=== PATIENT | male | born 1975 | race African-American/Black ===

== ENCOUNTER 2021-04-12 10:17 | Inpatient (IN) | payer OTHER, MEDICAID, SELFPAY ==
[2021-04-12] VITALS (9 sets, daily range): BP systolic 156–180
[~2021-04-12] VITALS: Ht 177.8 cm; Wt 64.9 kg
[2021-04-12] MEDS ORDERED: CEFAZOLIN 1 GM IVPB PREMIX 50 ML IV ONE (11:15)
[2021-04-12] MEDS ORDERED: ONDANSETRON HCL 4 MG/2 ML VIAL IVP ONE (13:14)
[2021-04-12] MEDS ORDERED: BUPIVACAINE /PF 0.25% 30 ML VIAL INJ ONE (13:14)
[2021-04-12] MEDS ORDERED: DEXAMETHASONE SOD PHOSPHATE 4 MG/ML VIAL IVP ONE (13:14)
[2021-04-12] MEDS ORDERED: MIDAZOLAM HCL 5 MG/5 ML VIAL IVP ONE (13:14)
[2021-04-12] MEDS ORDERED: SUGAMMADEX SODIUM 200 MG/2 ML VIAL IV ONE (13:14)
[2021-04-12] MEDS ORDERED: PROPOFOL 200MG/ 20ML VIAL (DIPRIVAN) IV ONE (13:14)
[2021-04-12] MEDS ORDERED: NS IRRIG SOLN 1000 ML IR ONE (13:14)
[2021-04-12] MEDS ORDERED: ROCURONIUM BROMIDE 10 MG/ML (ZEMURON) IV ONE (13:14)
[2021-04-12] MEDS ORDERED: fentaNYL CITRATE 250 MCG/5 ML AMP IV ONE (13:14)
[2021-04-12] MEDS ORDERED: LR 1,000 ML IV.SOLN IV ONE (13:14)
[2021-04-12] MEDS ORDERED: DESFLURANE 15 MIN GAS INH ONE (13:14)
[2021-04-12] MEDS ORDERED: POLYMYXIN 500,000/BACIT.10,000 UNITS in NS IRR 1 L IR ONE (13:29)
[2021-04-12] MEDS ORDERED: HYDROmorphone 1 MG/ML INJ. CARTRIDGE IVP PRN ×2 (14:15)
[2021-04-12] MEDS ORDERED: METOCLOPRAMIDE HCL 10 MG/2 ML VIAL IVP PRN (14:15)
[2021-04-12] MEDS ORDERED: LR 1,000 ML IV SCH (14:15)
[2021-04-12] MEDS ORDERED: MEPERIDINE HCL/PF 25 MG/ML DISP.SYRIN IVP PRN (14:15)
[2021-04-12] MEDS ORDERED: ONDANSETRON HCL 4 MG/2 ML VIAL IVP PRN (14:15)
[2021-04-12] MEDS ORDERED: hydrALAZINE HCL 20 MG/ML VIAL IVP PRN ×2 (14:15→23:45)
[2021-04-12] MEDS ORDERED: MIDAZOLAM HCL 2 MG/2 ML VIAL (VERSED) IVP PRN (14:15)
[2021-04-12] MEDS ORDERED: HYDROcodone/ACETAMIN 5-325 MG TAB (NORCO/ VICODIN) PO PRN (15:00)
[2021-04-12] MEDS ORDERED: D5/0.45 NS 1,000 ML IV SCH (15:00)
[2021-04-12] MEDS ORDERED: hydrALAZINE HCL 20 MG/ML VIAL ONE (17:21)
[2021-04-12] MEDS ORDERED: LABETALOL 100 MG/ 20ML VIAL IVP PRN (18:00)
[2021-04-12] MEDS ORDERED: HYDROcodone/ACETAMIN 5-325 MG TAB (NORCO/ VICODIN) ONE (21:16)
[2021-04-12] MEDS ORDERED: cloNIDine HCL 0.1 MG TABLET PO ONE (22:45)
[2021-04-12] MEDS ORDERED: cloNIDine HCL 0.1 MG TABLET ONE (22:46)
[2021-04-12] MEDS ORDERED: ACETAMINOPHEN 325 MG TABLET PO PRN (23:30)
[2021-04-12] MEDS ORDERED: ALBUTEROL SULFATE 0.083% 2.5 MG/3 ML VIAL.NEB INH PRN (23:30)
[2021-04-12] MEDS ORDERED: HYDROcodone/ACETAMIN 10-325 MG TAB PO PRN (23:30)
[2021-04-12] MEDS: 0.45% NACL 1,000 ML IV SCH (23:30)
[2021-04-12] MEDS ORDERED: cloNIDine HCL 0.1 MG TABLET PO PRN (23:45)
[2021-04-13] VITALS (12 sets, daily range): BP systolic 143–169
[2021-04-13] MEDS ORDERED: CARV6.2554 PO (00:04)
[2021-04-13] MEDS ORDERED: GLUT5POW PO (00:04)
[2021-04-13] MEDS ORDERED: HYDR-3927 PO (00:04)
[2021-04-13] MEDS ORDERED: HYD500 PO (00:04)
[2021-04-13] MEDS ORDERED: HYDR2TAB4 PO (00:04)
[2021-04-13] MEDS ORDERED: FOLI-43 PO (00:04)
[2021-04-13] MEDS ORDERED: VITD2000 PO (00:04)
[2021-04-13] MEDS ORDERED: DEFE360T PO (00:04)
[2021-04-13] MEDS ORDERED: NALOXONE HCL 0.4 MG/ML AMP (NARCAN) IVP PRN (03:15)
[2021-04-13] MEDS ORDERED: HYDROmorphone 2 MG TAB PO PRN (03:15)
[2021-04-13] MEDS: cloNIDine HCL 0.1 MG TABLET PO PRN ×2 (05:23→20:28)
[2021-04-13 06:20] LABS: BASOPHILS % (AUTO) 0.1 % (0.0-2.0); EOSINOPHILS # (AUTO) 0.1 K/uL (0.0-0.4); EOSINOPHILS % (AUTO) 0.8 % (0.0-4.0); HEMATOCRIT 28.3 % (36-54); HEMOGLOBIN 9.3 g/dL (14.0-18.0); LYMPHOCYTES % (AUTO) 17.9 % (20.5-51.5); MEAN CORPUSCULAR HEMOGLOBIN 35 pg (27-31); MEAN CORPUSCULAR HGB CONC 33 % (32-36); MEAN CORPUSCULAR VOLUME 105 fL (79.0-98.0); MONOCYTES % (AUTO) 9.5 % (1.7-9.3); NEUTROPHILS # (AUTO) 7.9 K/uL (1.8-7.7); NEUTROPHILS % (AUTO) 71.7 % (40.0-70.0); PLATELET COUNT (AUTO) 160 K/uL (130-430); RED BLOOD CELL COUNT(AUTO) 2.69 MIL/uL (4.2-6.2); RED CELL DISTRIBUTION WIDTH 24.9 % (9.0-15.0)
[2021-04-13 06:38] LABS: CALCIUM 8.8 mg/dL (8.4-11.0); CREATININE 3.47 mg/dL (0.55-1.30); POTASSIUM 4.4 mmol/L (3.5-5.1); TOTAL BILIRUBIN 1.2 mg/dL (0.0-1.0)
[2021-04-13] MEDS: HYDROXYUREA 500 MG CAPSULE (HYDREA) PO SCH (08:46)
[2021-04-13] MEDS: CARVEDILOL 6.25 MG TABLET (COREG) PO SCH ×2 (08:48→20:27)
[2021-04-13] MEDS: FOLIC ACID 1 MG TABLET PO SCH (08:48)
[2021-04-13] MEDS: HYDROcodone/ACETAMIN 5-325 MG TAB (NORCO/ VICODIN) PO PRN ×4 (08:52→23:00)
[2021-04-13] MEDS ORDERED: CARVEDILOL 6.25 MG TABLET (COREG) PO SCH (09:00)
[2021-04-13] MEDS ORDERED: HYDROXYUREA 500 MG CAPSULE (HYDREA) PO SCH (09:00)
[2021-04-13] MEDS ORDERED: FOLIC ACID 1 MG TABLET PO SCH (09:00)
[2021-04-13] MEDS: 0.45% NACL 1,000 ML IV SCH ×2 (09:47→20:24)
[2021-04-14 00:01] VITALS: BP_SYST 151
[2021-04-14] MEDS: HYDROcodone/ACETAMIN 5-325 MG TAB (NORCO/ VICODIN) PO PRN ×2 (05:37→13:08)
[2021-04-14] MEDS: 0.45% NACL 1,000 ML IV SCH (05:48)
[2021-04-14 08:00] LABS: CALCIUM 8.7 mg/dL (8.4-11.0); CREATININE 3.2 mg/dL (0.55-1.30); POTASSIUM 4.5 mmol/L (3.5-5.1); TOTAL BILIRUBIN 1.3 mg/dL (0.0-1.0)
[2021-04-14 08:45] VITALS: BP_SYST 162
[2021-04-14] MEDS: FOLIC ACID 1 MG TABLET PO SCH (09:32)
[2021-04-14] MEDS: CARVEDILOL 6.25 MG TABLET (COREG) PO SCH (09:32)
[2021-04-14] MEDS: HYDROXYUREA 500 MG CAPSULE (HYDREA) PO SCH (09:39)
[2021-04-14 10:02] LABS: BASOPHILS % (AUTO) 0.3 % (0.0-2.0); EOSINOPHILS # (AUTO) 0.2 K/uL (0.0-0.4); HEMATOCRIT 29.2 % (36-54); HEMOGLOBIN 9.5 g/dL (14.0-18.0); LYMPHOCYTES # (AUTO) 1.5 K/uL (1.0-5.5); LYMPHOCYTES % (AUTO) 16.6 % (20.5-51.5); MEAN CORPUSCULAR HEMOGLOBIN 35 pg (27-31); MEAN CORPUSCULAR HGB CONC 33 % (32-36); MEAN CORPUSCULAR VOLUME 106 fL (79.0-98.0); MONOCYTES # (AUTO) 0.6 K/uL (0.0-1.0); MONOCYTES % (AUTO) 6.4 % (1.7-9.3); NEUTROPHILS # (AUTO) 6.6 K/uL (1.8-7.7); NEUTROPHILS % (AUTO) 74.7 % (40.0-70.0); PLATELET COUNT (AUTO) 155 K/uL (130-430); RED BLOOD CELL COUNT(AUTO) 2.75 MIL/uL (4.2-6.2); RED CELL DISTRIBUTION WIDTH 24.7 % (9.0-15.0); WHITE BLOOD COUNT (AUTO) 8.9 K/uL (4.8-10.8)
[2021-04-14 11:30] VITALS: BP_SYST 169
[2021-04-14] MEDS: cloNIDine HCL 0.1 MG TABLET PO PRN (11:31)
[2021-04-14 12:23] VITALS: BP_SYST 157
[2021-04-14] MEDS ORDERED: CARVEDILOL 6.25 MG TABLET (COREG) PO ONE (12:45)
[2021-04-14 14:18] VITALS: BP_SYST 157
[2021-04-14] MEDS ORDERED: CARVEDILOL 12.5 MG TABLET (COREG) PO SCH (21:00)
== END 2021-04-14 14:45 | disposition home or self-care (01) | DRG 351 ==
LOC: SMU 10:17 → SDS 10:17 → STU 20:55
PROVIDERS: ADMIT Internal Medicine Hospice and Palliative Medicine; ATTEND Internal Medicine Hospice and Palliative Medicine
PROC: 0WUF0JZ Supplement Abdominal Wall with Synthetic Substitute, Open Approach (ICD-10-PCS; 2021-04-12)
PROC: 0YU60JZ Supplement Left Inguinal Region with Synthetic Substitute, Open Approach (ICD-10-PCS; principal; 2021-04-12 13:14)
DX: K42.0 Umbilical hernia with obstruction, without gangrene (principal); N17.9 Acute kidney failure, unspecified; K40.30 Unilateral inguinal hernia, with obstruction, without gangrene, not specified as recurrent; N18.4 Chronic kidney disease, stage 4 (severe); Z20.822 Contact with and (suspected) exposure to COVID-19; K66.0 Peritoneal adhesions (postprocedural) (postinfection); D57.1 Sickle-cell disease without crisis; I16.0 Hypertensive urgency; D64.9 Anemia, unspecified; K43.0 Incisional hernia with obstruction, without gangrene; Z90.49 Acquired absence of other specified parts of digestive tract; Z90.5 Acquired absence of kidney
CPT/HCPCS: 36415; 76770; 80053; 85025; 87081; C1781; C9399; G0378; J0360; J0690; J1100; J2250; J2405; J2704; J3010; J3490; J7120

== ENCOUNTER 2022-07-05 06:25 | Day surgery (SDC) | payer OTHER, MEDICAID ==
[~2022-07-05] VITALS: Ht 177.8 cm; Wt 65.8 kg
[~2022-07-05 06:25] MED LIST: CARV6.2554 PO; DEFE360T PO; FOLI-43 PO; GLUT5POW PO; HYD500 PO; HYDR-3927 PO; HYDR2TAB4 PO; VITD2000 PO
[2022-07-05] MEDS ORDERED: MEPERIDINE 100 MG INJ. 100 MG/ML VIAL ONE (06:40)
[2022-07-05] MEDS ORDERED: MIDAZOLAM HCL 5 MG/5 ML VIAL ONE (06:41)
[2022-07-05] MEDS ORDERED: LEVOFLOXACIN 250 MG/D5W 50 ML IV ONE ×2 (07:28→09:00)
[2022-07-05] MEDS ORDERED: fentaNYL CITRATE/PF 100 MCG/2 ML AMP ONE (08:11)
[2022-07-05 11:18] VITALS: BP_SYST 145
== END 2022-07-05 09:55 | disposition home or self-care (01) ==
LOC: SDS 06:25 → SMU 06:29 → SDS 09:55
PROVIDERS: ATTEND Internal Medicine Gastroenterology
DX: Z12.11 Encounter for screening for malignant neoplasm of colon (principal); K57.30 Diverticulosis of large intestine without perforation or abscess without bleeding; K64.8 Other hemorrhoids; I12.0 Hypertensive chronic kidney disease with stage 5 chronic kidney disease or end stage renal disease; N18.6 End stage renal disease; Z99.2 Dependence on renal dialysis; Z20.822 Contact with and (suspected) exposure to COVID-19
CPT/HCPCS: 36415; 45378; 99152; U0003; G0378; J1956; J2250; J3010; J2175